=== PATIENT | male | born 1990 | race African-American/Black ===

== ENCOUNTER 2025-05-05 20:22 | Emergency (ER) | payer OTHER ==
[~2025-05-05] VITALS: Ht 177.8 cm; Wt 90.0 kg
[~2025-05-05 20:22] MED LIST: ALBUTEROL; CLOT113C TP; SEROQUEL; [UNRECOGNIZED DRUG - OTHER]
[2025-05-05] MEDS ORDERED: LORAZEPAM 2MG/ML INJ IM STA (20:30)
[2025-05-05] MEDS: DIPHENHYDRAMINE 50MG/ML VIAL IM STA (20:46)
[2025-05-05] MEDS: HALOPERIDOL LACTATE 5MG/ML VIAL IM STA (20:46)
[2025-05-05] MEDS: LORAZEPAM 2MG/ML UD SYRINGE IM NR (21:08)
[2025-05-05 21:33] VITALS: O2SAT 98
[2025-05-05 21:39] LABS: BASOPHILS % 0.3 % (0.0-2.0); HEMOGLOBIN. 14.2 g/dL (14.0-18.0); LYMPHOCYTES % 10.4 % (20.0-50.0); MEAN CORPUSCULAR HEMOGLOBIN 28.9 pg (28.0-32.0); MEAN CORPUSCULAR HGB CONC 33.1 g/dL (31.0-37.0); MEAN CORPUSCULAR VOLUME 87.2 fL (80.0-94.0); MEAN PLATELET VOLUME 8.9 fl (7.4-10.4); MONOCYTES % 4.2 % (2.0-8.0); NEUTROPHILS % 84.1 % (40.0-76.0); PLATELET 221 x1000/uL (130-400); RED BLOOD CELL COUNT 4.93 mill/uL (4.7-6.1); RED CELL DISTRIBUTION WIDTH 14.6 % (11.6-14.6)
[2025-05-05 21:44] LABS: CHLORIDE 111 mEq/L (98-107); SODIUM 144 mEq/L (136-145)
[2025-05-05 21:45] LABS: CALCIUM 9.4 mg/dL (8.7-10.4); CARBON DIOXIDE 24 mEq/L (21-32)
[2025-05-05 21:50] LABS: CREATININE 1.3 mg/dL (0.6-1.3); ETHANOL BLOOD 21 mg/dL (<10); GLUCOSE 92 mg/dL (70-105); UREA NITROGEN BLOOD 6 mg/dL (9-23)
[2025-05-05 21:52] LABS: ACETAMINOPHEN < 2 ug/mL (10-30); CREATINE KINASE 653 IU/L (46-171)
[2025-05-05 21:55] LABS: TROPONIN I HIGH SENSITIVITY < 4 ng/L (3.0-53)
[2025-05-05 23:14] LABS: ALANINE AMINOTRANSFERASE 34 IU/L (10-49); ALBUMIN 4.3 g/dL (3.2-4.8); ASPARTATE AMINOTRANSFERASE 41 IU/L (<34); BILIRUBIN DIRECT < 0.1 mg/dL (<=3.0); BILIRUBIN TOTAL < 0.2 mg/dL (0.1-1.0); PHOSPHORUS 1.3 mg/dL (2.5-4.9); PROTEIN TOTAL 6.3 g/dL (6.0-8.3)
[2025-05-05 23:23] LABS: CLARITY URINE CLEAR (CLEAR); COLOR URINE YELLOW (YELLOW); GLUCOSE URINE NEGATIVE (NEGATIVE); KETONES URINE TRACE (NEGATIVE); LEUKOCYTE ESTERASE URINE NEGATIVE (NEGATIVE); NITRITE URINE NEGATIVE (NEGATIVE); OCCULT BLOOD URINE NEGATIVE (NEGATIVE); PROTEIN URINE TRACE (NEGATIVE); SPECIFIC GRAVITY URINE 1.016 (1.005-1.030)
[2025-05-05 23:32] LABS: *AMPHETAMINES SCREEN URINE NEGATIVE (NEGATIVE); *BARBITURATES SCREEN URINE NEGATIVE (NEGATIVE); *BENZODIAZEPINES SCREEN URINE NEGATIVE (NEGATIVE); *COCAINE SCREEN URINE NEGATIVE (NEGATIVE); CANNABINOID URINE SCREEN PRESUMPTIVE POSITIVE (NEGATIVE); ECSTASY MDMA SCREEN URINE NEGATIVE (NEGATIVE); METHADONE URINE SCREEN NEGATIVE (NEGATIVE); OPIATES URINE SCREEN NEGATIVE (NEGATIVE); PHENCYCLIDINE URINE SCREEN PRESUMTIVE POSITIVE (NEGATIVE)
[2025-05-05 23:48] LABS: RBC URINE NONE SEEN /hpf (0-2); SQUAMOUS EPITHELIAL CELL URINE NONE SEEN /lpf (RARE/1+)
[2025-05-05 23:49] LABS: BACTERIA URINE TRACE; COARSE GRANULAR CASTS URINE 0-5 /lpf; FINE GRANULAR CASTS URINE TNTC /lpf; WBC URINE 0-2 /hpf (0-2)
[2025-05-06] MEDS: LACTATED RINGERS 1,000 ML IV SCH ×3 (00:44→05:30)
[2025-05-06 02:28] LABS: CREATINE KINASE 820 IU/L (46-171)
[2025-05-06] MEDS ORDERED: LACTATED RINGERS 1,000 ML IV SCH (03:00)
[2025-05-06 06:44] LABS: CREATINE KINASE 797 IU/L (46-171)
[2025-05-06 10:14] VITALS: BP 132/78; PULSE 82; RESP 16; TEMP 37; O2SAT 99
== END 2025-05-06 10:20 | disposition home or self-care (01) ==
LOC: ER 20:22 → MERGE 20:22 → EDBD 20:22 → ER 05-06 10:20
DX: R45.1 Restlessness and agitation (principal); F19.10 Other psychoactive substance abuse, uncomplicated; F31.81 Bipolar II disorder; Z59.00 Homelessness unspecified; Z79.899 Other long term (current) drug therapy; Z20.822 Contact with and (suspected) exposure to COVID-19
CPT/HCPCS: 80076; 80305; 80048; 81003; 80307; 80329; 80320; 82550 ×2; 83735; 84100; 85025; 84484; 36415 ×2; 93005; 96372; 99291; 96360; 96361; 87426; J1200; J1630; J2060; J7030; G0480

== ENCOUNTER 2025-05-26 18:57 | Emergency (ER) | payer MEDICAID, OTHER ==
[~2025-05-26] VITALS: Ht 182.9 cm; Wt 87.0 kg
[2025-05-26] MEDS: DIPHENHYDRAMINE 50MG/ML VIAL IM STA (20:07)
[2025-05-26 20:08] LABS: BASOPHILS % 0.5 % (0.0-2.0); EOSINOPHILS % 1.2 % (0.0-5.0); HEMATOCRIT. 42.5 % (42.0-52.0); HEMOGLOBIN. 14.0 g/dL (14.0-18.0); LYMPHOCYTES % 16.2 % (20.0-50.0); MEAN PLATELET VOLUME 9.1 fl (7.4-10.4); MONOCYTES % 5.9 % (2.0-8.0); NEUTROPHILS % 76.2 % (40.0-76.0); PLATELET 240 x1000/uL (130-400); RED BLOOD CELL COUNT 4.89 mill/uL (4.7-6.1); RED CELL DISTRIBUTION WIDTH 14.6 % (11.6-14.6)
[2025-05-26] MEDS: LORAZEPAM 2MG/ML UD SYRINGE IM NR ×2 (20:08→21:37)
[2025-05-26 20:20] LABS: CREATININE 1.3 mg/dL (0.6-1.3); ETHANOL BLOOD 60 mg/dL (<10); UREA NITROGEN BLOOD 11 mg/dL (9-23)
[2025-05-26 20:23] LABS: CLARITY URINE CLEAR (CLEAR); COLOR URINE YELLOW (YELLOW); GLUCOSE URINE NEGATIVE (NEGATIVE); KETONES URINE NEGATIVE (NEGATIVE); LEUKOCYTE ESTERASE URINE NEGATIVE (NEGATIVE); NITRITE URINE NEGATIVE (NEGATIVE); OCCULT BLOOD URINE NEGATIVE (NEGATIVE); PH URINE 6.0 (4.5-8.0); PROTEIN URINE NEGATIVE (NEGATIVE); SPECIFIC GRAVITY URINE 1.014 (1.005-1.030); UROBILINOGEN URINE 1.0 E.U./dL (0.2-1.0)
[2025-05-26 20:38] LABS: *AMPHETAMINES SCREEN URINE NEGATIVE (NEGATIVE); *BARBITURATES SCREEN URINE NEGATIVE (NEGATIVE); *BENZODIAZEPINES SCREEN URINE NEGATIVE (NEGATIVE); *COCAINE SCREEN URINE NEGATIVE (NEGATIVE); METHADONE URINE SCREEN NEGATIVE (NEGATIVE); OPIATES URINE SCREEN NEGATIVE (NEGATIVE); PHENCYCLIDINE URINE SCREEN PRESUMTIVE POSITIVE (NEGATIVE)
[2025-05-26 20:39] LABS: CANNABINOID URINE SCREEN PRESUMPTIVE POSITIVE (NEGATIVE); ECSTASY MDMA SCREEN URINE NEGATIVE (NEGATIVE)
[2025-05-26] MEDS: DIPHENHYDRAMINE 50MG/ML VIAL IM SCH (21:37)
[2025-05-26 22:30] VITALS: O2SAT 100
[2025-05-27] MEDS: RISPERIDONE 0.5MG TABLET PO SCH (12:00)
[2025-05-27 13:35] VITALS: BP 96/68; PULSE 80; RESP 16; TEMP 36.8; O2SAT 98
== END 2025-05-27 14:00 | disposition short-term general hospital (02) ==
LOC: ER 18:57
DX: R45.1 Restlessness and agitation (principal); D57.1 Sickle-cell disease without crisis; F31.9 Bipolar disorder, unspecified; Z79.899 Other long term (current) drug therapy; Z20.822 Contact with and (suspected) exposure to COVID-19
CPT/HCPCS: 80305; 80048; 81003; 80307; 80329; 80320; 85025; 36415; 96372; 99291; 87426; J1200; J2060; G0480